=== PATIENT | female | born 1970 | race Caucasian/White ===

== ENCOUNTER 2019-08-23 16:17 | Emergency (ER) | payer OTHER ==
[~2019-08-23] VITALS: Ht 165.1 cm; Wt 117.9 kg
[2019-08-23 20:52] VITALS: BP 140/72
[2019-08-23] MEDS ORDERED: MORPHINE SULF 30 mg ER tab PO ONE (21:00)
== END 2019-08-23 21:26 | disposition home or self-care (01) ==
LOC: ER 16:17
DX: S92.515A Nondisplaced fracture of proximal phalanx of left lesser toe(s), initial encounter for closed fracture (principal); M19.071 Primary osteoarthritis, right ankle and foot; X58.XXXA Exposure to other specified factors, initial encounter; Y93.89 Activity, other specified; Y92.89 Other specified places as the place of occurrence of the external cause; Y99.8 Other external cause status
CPT/HCPCS: 73630; 99283; L3260

== ENCOUNTER 2022-11-05 09:29 | Emergency (ER) | payer OTHER ==
[~2022-11-05] VITALS: Ht 157.5 cm; Wt 100.0 kg
[~2022-11-05 09:29] MED LIST: LEVO500T31 PO
[2022-11-05 10:05] VITALS: BP 143/98
[2022-11-05] MEDS ORDERED: AMOX-277 PO (10:14)
[2022-11-05] MEDS ORDERED: cefTRIAXone SOD 1,000 MG VL IM ONE (10:15)
[2022-11-05] MEDS ORDERED: ERY05OO OP ×2 (10:17→11:46)
== END 2022-11-05 10:24 | disposition home or self-care (01) ==
LOC: ER 09:29
DX: L03.213 Periorbital cellulitis (principal); H00.013 Hordeolum externum right eye, unspecified eyelid; I10 Essential (primary) hypertension; E78.5 Hyperlipidemia, unspecified; F17.210 Nicotine dependence, cigarettes, uncomplicated; Z90.49 Acquired absence of other specified parts of digestive tract; Z79.2 Long term (current) use of antibiotics; Z88.8 Allergy status to other drugs, medicaments and biological substances
CPT/HCPCS: 96372; 99283; J0696